=== PATIENT | male | born 1980 | race Caucasian/White ===

== ENCOUNTER → 2017-08-01 | Outpatient (REF) | payer OTHER | LOC: M SFHCLERA 12:09 | DX: R30.0 Dysuria (principal) | CPT/HCPCS: 87186 ==

== ENCOUNTER → 2018-12-03 | Outpatient (CLI) | payer OTHER ==
--- NOTE | 2018-12-04 01:44 | REP ---
Clinical: Trauma. Technique: Frontal view of the chest with multiple views of the right hemithorax. Findings: Frontal view of the chest demonstrates no acute cardiopulmonary process. Multiple views of the right hemithorax demonstrates no obvious acute rib fracture or pathology. Impression: No obvious right rib fracture. Electronically Signed by Chintan Mustafa MD 12/04/2018 01:35 A
--- NOTE | 2018-12-04 01:48 | REP ---
Clinical: Back injury. Technique: AP, lateral, bilateral oblique and coned-down views of the lumbosacral spine. Findings: Levoconvex scoliosis noted on frontal radiograph. Mild/early moderate multilevel degenerative changes with osteophytosis, endplate sclerosis and disc space narrowing noted without evidence for acute fracture / compression injury or subluxation. Impression: Degenerative changes. No acute fracture / compression injury or subluxation appreciated. Electronically Signed by Chintan Mustafa MD 12/04/2018 01:39 A
== END ==
LOC: M LRY 19:36
PROVIDERS: ATTEND Physician Assistant
DX: M51.37 Other intervertebral disc degeneration, lumbosacral region (principal); M25.78 Osteophyte, vertebrae; S39.92XA Unspecified injury of lower back, initial encounter; W11.XXXA Fall on and from ladder, initial encounter; Y92.9 Unspecified place or not applicable